=== PATIENT | female | born 1965 | race Caucasian/White ===

== ENCOUNTER 2024-11-13 13:00 | Outpatient (RCR) | payer MEDICARE, BC, SELFPAY | END 2025-01-18 08:43 | disposition home or self-care (01) | PROVIDERS: Visit Provider Family Medicine | DX: M54.2 Cervicalgia (principal); M19.91 Primary osteoarthritis, unspecified site; M79.7 Fibromyalgia; Z51.89 Encounter for other specified aftercare | CPT/HCPCS: 97110; 97140; 97162 ==